=== PATIENT | male | born 1940 | race Caucasian/White ===

== ENCOUNTER → 2019-05-03 | Outpatient (CLI) | payer OTHER | END | disposition home or self-care (01) | LOC: PCVCCLINIC 14:30 | PROVIDERS: ATTEND Internal Medicine | DX: I13.0 Hypertensive heart and chronic kidney disease with heart failure and stage 1 through stage 4 chronic kidney disease, or unspecified chronic kidney disease (principal); N18.9 Chronic kidney disease, unspecified; I50.9 Heart failure, unspecified; E78.5 Hyperlipidemia, unspecified; Z87.891 Personal history of nicotine dependence | CPT/HCPCS: G0463 ==

== ENCOUNTER → 2019-05-24 | Outpatient (CLI) | payer OTHER ==
[~2019-05-24] MED LIST: REGADENOSON 0.4 MG/5 ML DISP.SYRIN. IV ONE
--- NOTE | 2019-05-24 11:05 | PCVCIMAG ---
APPROVED REPORT Study performed: 05/24/2019 08:21:55 EXAM: Comprehensive 2D, Doppler, and color-flow Echocardiogram Patient Location: Echo lab Status: routine BSA: 1.87 HR: 67 bpmBP: 146/78 mmHg Rhythm: NSR Other Information Study Quality: Adequate Risk Factors: Cardiac Risk Factors: HTN Indications Dyspnea Chest Pain 2D Dimensions IVSd: 14.38 (7-11mm)LVOT Diam: 23.27 (18-24mm) LVDd: 51.21 mm PWd: 13.18 (7-11mm)Ascending Ao: 32.36 (22-36mm) LVDs: 37.04 (25-40mm) Left Atrium: 47.82 (27-40mm) Aortic Root: 32.68 mm LV Single Plane 4CH: 53.47 % LV Single Plane 2CH: 54.01 % Biplane EF: 53.4 % Volumes Left Atrial Volume (Systole) Single Plane 4CH: 74.00 mLSingle Plane 2CH: 119.91 mL LA ESV Index: 52.00 mL/m2 Aortic Valve AoV Peak Phil.: 2.12 m/s AO Peak Gr.: 17.92 mmHgLVOT Max P.10 mmHg AO Mean Gr.: 9.87 mmHgLVOT Mean P.15 mmHg AO V2 Mean: 1.49 m/sLVOT Max V: 0.72 m/s AO V2 VTI: 51.93 cmLVOT Mean V: 0.51 m/s BEN (VTI): 1.33 ri0OHND V1 VTI: 16.22 cm BEN Vmax: 1.45 cm2 AI Vmax: 4.10 m/sSV (LVOT): 68.93 mL AI Dimmit: 2.48 m/s2 AI PHT: 478.99 ms Mitral Valve MV Peak Gr.: 7.40 mmHg MV Mean Gr.: 2.15 mmHgE/A Ratio: 3.6 MV Decel. Time: 192.40 ms MV E Max Phil.: 1.46 m/s MV A Phil.: 0.41 m/s MV Max Phil.: 1.36 m/s MV Mean Phil.: 0.64 m/s MV VTI: 373.91 mm MVA VTI: 184.34 mm2 MV PHT: 99.08 ms MVA (PHT): 2.22 cm2 IVRT: 93.43 ms Pulmonary Valve PV Peak Phil.: 0.88 m/sPV Peak Gr.: 3.07 mmHg Pulmonary Vein P Vein S: 0.27 m/sP Vein A: 0.29 m/s P Vein D: 0.68 m/sP Vein A Dur.: 134.9 msec P Vein S/D Ratio: 0.40 Tricuspid Valve TR Peak Phil.: 3.58 m/s TR Peak Gr.: 51.29 mmHg TV Vmax: 0.41 m/s Left Ventricle The left ventricle is normal size. There is normal LV segmental wall motion. Mild to moderate concentric left ventricular hypertrophy. Left ventricular systolic function is borderline limits of normal. LVEF is 50-55%. Grade II - pseudonormal filling dynamics. Right Ventricle The right ventricle is normal size. The right ventricular systolic function is normal. Atria Left atrium is severely dilated. Right atrium is severely dilated. Aortic Valve Mild aortic valve sclerosis. Mild aortic regurgitation. There is mild valvular aortic stenosis. Calculated aortic valve area is 1.5 cm2 with maximum pressure gradient of 18 mmHg and mean pressure gradient of 10 mmHg. Mitral Valve Moderately calcified leaflet appearance. Mild to moderate mitral regurgitation. Mild mitral valve stenosis. Tricuspid Valve The tricuspid valve is normal in structure. Moderate tricuspid regurgitation with PAP of 58 mmHg. Pulmonic Valve The pulmonary valve is normal in structure. Mild pulmonic regurgitation. Great Vessels The aortic root is normal in size. IVC is normal in size and collapses >50% with inspiration. Pericardium There is no pericardial effusion. There is no pleural effusion. <Conclusion> The left ventricle is normal size. LVEF is 50-55%. Left atrium is severely dilated. Right atrium is severely dilated. Mild aortic valve sclerosis. Mild aortic regurgitation. There is mild valvular aortic stenosis. Calculated aortic valve area is 1.5 cm2 with maximum pressure gradient of 18 mmHg and mean pressure gradient of 10 mmHg. Moderately calcified leaflet appearance. Mild to moderate mitral regurgitation. Mild mitral valve stenosis. The tricuspid valve is normal in structure. Moderate tricuspid regurgitation with PAP of 58 mmHg. The pulmonary valve is normal in structure. Mild pulmonic regurgitation. There is no pericardial effusion. There is no pleural effusion.
--- NOTE | 2019-05-25 09:46 | PCVCIMAG ---
APPROVED REPORT Imaging Protocol: Rest Tc-99m/Stress Tc-99m 1 day Study performed: 05/24/2019 09:53:10 Indication: Chest pain, Dyspnea Patient Location: Out-Patient Stress Nurse: Gabriela Sherwood RN, Rosa Isela Rodriguez RN ND Tech:Cecilia Valentin [facility] Ht: 5 ft 5 in Wt: 176 lbs BSA: 1.87 m2 HR: 65 bpm BP: 186/80 mmHg BMI: 29.28 Rhythm: Sinus Rhythm, 1st degree AV block, Septal Infarct Medical History Medical History: Hyperlipidemia, HTN, CVD, Diabetes, Former Smoker, CKD w Dialysis Medications: ASA, Carvedilol, Insulin, Isosorbide, Renleva Allergies: No known drug allergies Cardiac Risk Factors: Age Pretest Chest Pain Characteristics: No chest pain Exercise History: Sedentary Meds Held (24 hrs): Carvedilol, Isosorbide Resting Data Rest SPECT myocardial perfusion imaging was performed in supine position 45 minutes following the intravenous injection of 9.9 mCi of Tc-99m Sestamibi. Time of rest injection: 914 Date: 05/24/2019 Administration Route: IV Administration Site: Right Hand Pharmacologic Stress Pharmacologic stress test was performed by injecting Regadenoson 0.4 mg IV push over 10-15 seconds immediately followed by the intravenous injection of 32.6 mCi of Tc-99m Sestamibi. Time of stress injection: 0 Date: 05/24/2019 Administration Route: IV Administration Site: Right Hand Gated Stress SPECT was performed 45 minutes after stress injection. The images were gated to evaluate regional wall motion and calculate left ventricular ejection fraction. Stress Test Details Stress Test: Pharmacologic stress testing performed using 0.4 mg of regadenoson per 5 mL given IV over 10 seconds. Reason for pharmacologic stress test: unsteady gait. HRMax Heart Rate (APMHR): 144 bpm Resting HR: 65 bpmTarget HR (85% APMHR): 122 bpm Max HR Achieved: 76 bpm % of APMHR: 52 Recovery HR: 75 bpm BP Resting BP: 186/80 mmHg Max BP: 170/74 mmHg Recovery BP: 174/75 mmHg ECG Resting ECG: Sinus Rhythm, 1st degree AV block, Septal Infarct Stress ECG: Sinus Arrhythmia, 1st degree AV block, Prolonged QT Arrhythmia: PAC's Recovery ECG: Sinus Arrhythmia, 1st degree AV block, Prolonged QT Clinical Reason for Termination: Completed protocol Stress Symptoms: Abdominal discomfort Symptoms resolved with caffeine. Stress ECG Conclusion 1. Adequate response to intravenous Lexiscan 2. Inadequate heart rate for ECG diagnosis Study Data Post stress, the left ventricular ejection was 52%.. SSS: 1 SRS: 0 SDS: 1 TID = 1.03. Perfusion There is a large area of moderately reduced uptake in the entire segment of the inferior wall which is seen on the stress images as well as the resting images. This area thickens and moves normally and is most consistent with attenuation artifact. Wall Motion Normal left ventricular wall motion. Nuclear Conclusion ECG Findings: non-diagnostic Clinical Findings: negative for ischemia Nuclear Findings: negative for ischemia Exercise Capacity: not assessed Left Ventricular Function: normal 1. Low risk study 2. Post stress left ventricular ejection fraction 52% with normal wall motion <Conclusion> 1. Adequate response to intravenous Lexiscan 2. Inadequate heart rate for ECG diagnosis
== END | disposition home or self-care (01) ==
LOC: PCVCIMAG 08:34
PROVIDERS: ATTEND Internal Medicine
DX: I08.8 Other rheumatic multiple valve diseases (principal); R07.9 Chest pain, unspecified; R06.02 Shortness of breath; E11.9 Type 2 diabetes mellitus without complications; Z87.891 Personal history of nicotine dependence
CPT/HCPCS: 78452; 93017; 93306; A9500; J2785